=== PATIENT | male | born 1940 | race Caucasian/White ===

== ENCOUNTER 2018-05-09 08:41 | Inpatient (IN) | payer OTHER, MEDICARE ==
[2018-05-01 15:18] LABS: BASOPHILS # (AUTO) 0.1 K/uL (0.0-0.2); BASOPHILS % (AUTO) 0.7 % (0.0-2.0); EOSINOPHILS # (AUTO) 0.4 K/uL (0.0-0.4); EOSINOPHILS % (AUTO) 4.1 % (0.0-4.0); HEMATOCRIT 36.4 % (36-54); LYMPHOCYTES # (AUTO) 2.7 K/uL (1.0-5.5); LYMPHOCYTES % (AUTO) 25.9 % (20.5-51.5); MEAN CORPUSCULAR HEMOGLOBIN 30 pg (27-31); MEAN CORPUSCULAR HGB CONC 33 % (32-36); MEAN CORPUSCULAR VOLUME 90 fL (79.0-98.0); MONOCYTES # (AUTO) 0.9 K/uL (0.0-1.0); MONOCYTES % (AUTO) 8.3 % (1.7-9.3); NEUTROPHILS # (AUTO) 6.3 K/uL (1.8-7.7); PLATELET COUNT (AUTO) 271 K/uL (130-430); RED BLOOD CELL COUNT(AUTO) 4.04 MIL/uL (4.2-6.2); RED CELL DISTRIBUTION WIDTH 14.1 % (9.0-15.0); WHITE BLOOD COUNT (AUTO) 10.4 K/uL (4.8-10.8)
[2018-05-01 15:32] LABS: BILIRUBIN,URINE NEGATIVE (NEGATIVE); BLOOD, URINE 1+ (NEGATIVE); CLARITY/URINE CLEAR (CLEAR); COLOR,URINE YELLOW (YELLOW); GLUCOSE,URINE NEGATIVE (NEGATIVE); KETONES,URINE NEGATIVE (NEGATIVE); LEUKOCYTE ESTERASE ,URINE NEGATIVE (NEGATIVE); NITRITE, URINE NEGATIVE (NEGATIVE); PH,URINE 5.5 (5.0-8.0); PROTEIN URINE TRACE (NEGATIVE); UROBILINOGEN,URINE 0.2 (0.2-1.0)
[2018-05-01 15:48] LABS: ANION GAP 13 (5-15); CALCIUM 10.4 mg/dL (8.4-11.0); CHLORIDE 102 mmol/L (98-107); CREATININE 2.57 mg/dL (0.55-1.30); GLUCOSE 107 mg/dL (70-99); POTASSIUM 4.1 mmol/L (3.5-5.1); SODIUM SERUM 135 mmol/L (136-145); UREA NITROGEN, BLOOD 39 mg/dL (8-21)
[2018-05-01 16:20] LABS: BACTERIA,URINE FEW /HPF (None Seen); RBC,URINE 0-3 /HPF (0-3); WBC,URINE 0-3 /HPF (0-3)
[2018-05-01 16:21] LABS: COARSE GRANULAR CASTS,URINE 0-10 /LPF (None Seen); MUCUS,URINE 1+ /LPF (None Seen)
[~2018-05-09] VITALS: Ht 165.1 cm; Wt 98.0 kg
[2018-05-09] MEDS ORDERED: CEFAZOLIN SOD 2 GM in D5W 50 ML IV ONE (09:00)
[2018-05-09] MEDS ORDERED: VANCOMYCIN HCL 1,000 MG in NS 250 ML IV ONE (09:00)
[2018-05-09] MEDS ORDERED: TRANEXAMIC ACID 1,000 MG/10 ML VIAL IV ONE ×2 (09:00→14:20)
[2018-05-09] MEDS ORDERED: SODI325T PO (10:27)
[2018-05-09] MEDS ORDERED: LINA5TAB2 PO (10:27)
[2018-05-09] MEDS ORDERED: MIRA25TA PO (10:27)
[2018-05-09] MEDS ORDERED: PATI16.8 PO (10:27)
[2018-05-09] MEDS ORDERED: CARV6.2554 PO (10:27)
[2018-05-09] MEDS ORDERED: MOME13HF2 INH (10:27)
[2018-05-09] MEDS ORDERED: OMEG1CAP PO (10:27)
[2018-05-09] MEDS ORDERED: MONT10TA22 (10:27)
[2018-05-09] MEDS ORDERED: LIP40 PO (10:27)
[2018-05-09] MEDS ORDERED: POTA10TA15 PO (10:27)
[2018-05-09] MEDS ORDERED: ALBUTEROL SULFATE 0.083% 2.5 MG/3 ML VIAL.NEB INH ONE ×2 (11:10→11:30)
[2018-05-09] MEDS ORDERED: POLYMYXIN 500,000/BACIT.10,000 UNITS in NS IRR 1 L IR ONE (11:14)
[2018-05-09] MEDS: ROPIVACAINE 0.2% 550 ML INJ SCH (12:12)
[2018-05-09] MEDS ORDERED: MORPHINE SULFATE 10MG/10ML PF AMP SP SCH (12:15)
[2018-05-09] MEDS ORDERED: ONDANSETRON HCL 4 MG/2 ML VIAL IVP PRN ×3 (12:15→14:15)
[2018-05-09] MEDS ORDERED: fentaNYL CITRATE/PF 100 MCG/2 ML AMP IVP PRN ×2 (12:15)
[2018-05-09] MEDS ORDERED: DIPHENHYDRAMINE INJ 50 MG/ML VIAL IVP PRN ×2 (12:15)
[2018-05-09] MEDS ORDERED: NALOXONE HCL 0.4 MG/ML AMP (NARCAN) IVP PRN ×2 (12:15)
[2018-05-09] MEDS ORDERED: NALBUPHINE HCL 10 MG/ML AMP IVP PRN ×2 (12:15)
[2018-05-09] MEDS ORDERED: DIPHENHYDRAMINE HCL 25 MG CAPSULE PO PRN (14:15)
[2018-05-09] MEDS ORDERED: ROPIVACAINE HCL/PF 5 MG/ML 0.5% 30 ML VIAL ONE (14:20)
[2018-05-09] MEDS ORDERED: MIDAZOLAM HCL 5 MG/ML VIAL (VERSED) IV ONE (14:20)
[2018-05-09] MEDS ORDERED: BUPIVACAINE /PF 0.75% 10 ML VIAL INJ ONE (14:20)
[2018-05-09] MEDS ORDERED: LR 1,000 ML IV.SOLN IV ONE (14:20)
[2018-05-09] MEDS ORDERED: ROPIVACAINE 0.2% (NAROPIN) PF SOLUTION 100 ML BOTTLE ONE (14:20)
[2018-05-09] MEDS ORDERED: PROPOFOL 200MG/ 20ML VIAL (DIPRIVAN) IV ONE (14:20)
[2018-05-09] MEDS ORDERED: CEFAZOLIN 2 GM IVPB PREMIX 50 ML IV ONE (14:20)
[2018-05-09] MEDS: LR 1,000 ML IV SCH (15:48)
[2018-05-09 15:50] VITALS: BP_SYST 99
[2018-05-09 16:25] VITALS: BP_SYST 127
[2018-05-09] MEDS: OXYCODONE/ACETAMINOPHEN *10*mg/325 mg TABLET PO PRN (17:23)
[2018-05-09] MEDS ORDERED: COMMUNICATION ORDER XX ONE (17:45)
[2018-05-09] MEDS ORDERED: NON-FORMULARY MEDICATION (Mirabegron (Myrbetriq) 25 MG) PO SCH (17:45)
[2018-05-09] MEDS ORDERED: MEPERIDINE HCL/PF 50 MG/ML AMP IM ONE (19:15)
[2018-05-09 20:00] VITALS: BP_SYST 145
[2018-05-09] MEDS ORDERED: TRANEXAMIC ACID 1,000 MG in NS 50 ML IV ONE (20:30)
[2018-05-09] MEDS: SENNOSIDES 8.6 MG TABLET PO SCH (20:48)
[2018-05-09] MEDS ORDERED: NON-FORMULARY MEDICATION (Mometasone/Formoterol* (Dulera 100 Mcg/5 Mcg Inhaler*) 2 PUFF) INH SCH (21:00)
[2018-05-09] MEDS: TRIAMCINOLONE ACETONIDE 0.025% 80 GM CREAM.GM. TP SCH (21:00)
[2018-05-09] MEDS: SODIUM BICARBONATE 325 MG TABLET PO SCH (21:00)
[2018-05-09] MEDS: NYSTATIN CREAM TP SCH (21:00)
[2018-05-09] MEDS: CLOBETASOL PROPIONATE 0.05%, 60 GM CREAM TP SCH (21:00)
[2018-05-09] MEDS: VELTASSA 16.8 GM PO SCH (21:04)
[2018-05-10 00:07] VITALS: BP_SYST 136
[2018-05-10] MEDS: LR 1,000 ML IV SCH ×2 (04:12→15:03)
[2018-05-10] MEDS: OXYCODONE/ACETAMINOPHEN *10*mg/325 mg TABLET PO PRN ×2 (05:10→13:50)
[2018-05-10 06:22] LABS: BASOPHILS # (AUTO) 0.1 K/uL (0.0-0.2); BASOPHILS % (AUTO) 0.9 % (0.0-2.0); EOSINOPHILS # (AUTO) 0.3 K/uL (0.0-0.4); EOSINOPHILS % (AUTO) 2.4 % (0.0-4.0); HEMATOCRIT 32.3 % (36-54); HEMOGLOBIN 10.6 g/dL (14.0-18.0); LYMPHOCYTES # (AUTO) 1.7 K/uL (1.0-5.5); LYMPHOCYTES % (AUTO) 14.5 % (20.5-51.5); MEAN CORPUSCULAR HEMOGLOBIN 29 pg (27-31); MEAN CORPUSCULAR HGB CONC 33 % (32-36); MEAN CORPUSCULAR VOLUME 89 fL (79.0-98.0); MONOCYTES % (AUTO) 8.8 % (1.7-9.3); NEUTROPHILS # (AUTO) 8.6 K/uL (1.8-7.7); NEUTROPHILS % (AUTO) 73.4 % (40.0-70.0); PLATELET COUNT (AUTO) 239 K/uL (130-430); RED BLOOD CELL COUNT(AUTO) 3.64 MIL/uL (4.2-6.2); RED CELL DISTRIBUTION WIDTH 13.7 % (9.0-15.0); WHITE BLOOD COUNT (AUTO) 11.7 K/uL (4.8-10.8)
[2018-05-10 06:37] LABS: ANION GAP 9 (5-15); CALCIUM 9.6 mg/dL (8.4-11.0); CHLORIDE 98 mmol/L (98-107); CREATININE 2.49 mg/dL (0.55-1.30); GLUCOSE 192 mg/dL (70-99); POTASSIUM 4.1 mmol/L (3.5-5.1); SODIUM SERUM 131 mmol/L (136-145); UREA NITROGEN, BLOOD 39 mg/dL (8-21)
[2018-05-10 08:00] VITALS: BP_SYST 129
[2018-05-10] MEDS: NYSTATIN CREAM TP SCH ×2 (08:35→21:00)
[2018-05-10] MEDS: FLUTICASONE/VILANTEROL 1 EACH BLST.W.DEV INH SCH ×2 (08:36→21:33)
[2018-05-10] MEDS: MULTIVITAMINS TAB 1 TABLET PO SCH (08:37)
[2018-05-10] MEDS: VELTASSA 16.8 GM PO SCH ×2 (08:37→21:20)
[2018-05-10] MEDS: ATORVASTATIN 20 MG TABLET PO SCH (08:37)
[2018-05-10] MEDS: ASCORBIC ACID 500 MG TABLET PO SCH ×2 (08:38→21:18)
[2018-05-10] MEDS: CARVEDILOL 6.25 MG TABLET (COREG) PO SCH (08:38)
[2018-05-10] MEDS: SODIUM BICARBONATE 325 MG TABLET PO SCH ×3 (08:38→21:19)
[2018-05-10] MEDS: FERROUS SULFATE 140 MG TABLET.ER PO SCH (08:39)
[2018-05-10] MEDS: CLOBETASOL PROPIONATE 0.05%, 60 GM CREAM TP SCH ×2 (08:46→21:32)
[2018-05-10] MEDS: TRIAMCINOLONE ACETONIDE 0.025% 80 GM CREAM.GM. TP SCH ×2 (08:46→21:00)
[2018-05-10] MEDS ORDERED: FLUTICASONE/VILANTEROL 1 EACH BLST.W.DEV INH PRN (09:00)
[2018-05-10] MEDS ORDERED: VELTASSA 16.8 GM PO SCH (09:00)
[2018-05-10] MEDS ORDERED: FLUTICASONE/VILANTEROL 1 EACH BLST.W.DEV INH SCH (09:00)
[2018-05-10] MEDS: RIVAROXABAN 10 MG TABLET PO SCH (10:01)
[2018-05-10 12:50] VITALS: BP_SYST 140
[2018-05-10] MEDS: ROPIVACAINE 0.2% 550 ML INJ SCH (16:22)
[2018-05-10 16:41] VITALS: BP_SYST 134
[2018-05-10 20:00] VITALS: BP_SYST 130
[2018-05-10] MEDS: SENNOSIDES 8.6 MG TABLET PO SCH (21:18)
[2018-05-11 00:07] VITALS: BP_SYST 131
[2018-05-11] MEDS: OXYCODONE/ACETAMINOPHEN *10*mg/325 mg TABLET PO PRN ×5 (00:48→21:19)
[2018-05-11 06:47] LABS: ANION GAP 12 (5-15); CALCIUM 10.6 mg/dL (8.4-11.0); CHLORIDE 94 mmol/L (98-107); CREATININE 2.77 mg/dL (0.55-1.30); GLUCOSE 153 mg/dL (70-99); POTASSIUM 3.7 mmol/L (3.5-5.1); SODIUM SERUM 126 mmol/L (136-145); UREA NITROGEN, BLOOD 34 mg/dL (8-21)
[2018-05-11 07:34] LABS: BASOPHILS # (AUTO) 0.1 K/uL (0.0-0.2); BASOPHILS % (AUTO) 0.9 % (0.0-2.0); EOSINOPHILS # (AUTO) 0.2 K/uL (0.0-0.4); EOSINOPHILS % (AUTO) 1.7 % (0.0-4.0); HEMATOCRIT 32.6 % (36-54); HEMOGLOBIN 11.2 g/dL (14.0-18.0); LYMPHOCYTES # (AUTO) 2.5 K/uL (1.0-5.5); LYMPHOCYTES % (AUTO) 19.1 % (20.5-51.5); MEAN CORPUSCULAR HEMOGLOBIN 30 pg (27-31); MEAN CORPUSCULAR HGB CONC 34 % (32-36); MEAN CORPUSCULAR VOLUME 88 fL (79.0-98.0); MONOCYTES # (AUTO) 1.2 K/uL (0.0-1.0); MONOCYTES % (AUTO) 8.7 % (1.7-9.3); NEUTROPHILS # (AUTO) 9.3 K/uL (1.8-7.7); NEUTROPHILS % (AUTO) 69.6 % (40.0-70.0); PLATELET COUNT (AUTO) 229 K/uL (130-430); RED BLOOD CELL COUNT(AUTO) 3.71 MIL/uL (4.2-6.2); RED CELL DISTRIBUTION WIDTH 13.8 % (9.0-15.0); WHITE BLOOD COUNT (AUTO) 13.3 K/uL (4.8-10.8)
[2018-05-11 08:00] VITALS: BP_SYST 123
[2018-05-11] MEDS: LR 1,000 ML IV SCH ×2 (08:52→16:03)
[2018-05-11] MEDS: ASCORBIC ACID 500 MG TABLET PO SCH ×2 (08:53→21:25)
[2018-05-11] MEDS: CARVEDILOL 6.25 MG TABLET (COREG) PO SCH (08:53)
[2018-05-11] MEDS: MULTIVITAMINS TAB 1 TABLET PO SCH (08:53)
[2018-05-11] MEDS: ATORVASTATIN 20 MG TABLET PO SCH (08:53)
[2018-05-11] MEDS: FERROUS SULFATE 140 MG TABLET.ER PO SCH (08:54)
[2018-05-11] MEDS: SODIUM BICARBONATE 325 MG TABLET PO SCH ×3 (08:54→21:26)
[2018-05-11] MEDS: FLUTICASONE/VILANTEROL 1 EACH BLST.W.DEV INH SCH ×2 (08:55→21:30)
[2018-05-11] MEDS: NYSTATIN CREAM TP SCH ×2 (08:59→21:00)
[2018-05-11] MEDS: VELTASSA 16.8 GM PO SCH ×2 (08:59→21:29)
[2018-05-11] MEDS: CLOBETASOL PROPIONATE 0.05%, 60 GM CREAM TP SCH ×2 (09:00→21:31)
[2018-05-11] MEDS: TRIAMCINOLONE ACETONIDE 0.025% 80 GM CREAM.GM. TP SCH ×2 (09:00→21:00)
[2018-05-11] MEDS: RIVAROXABAN 10 MG TABLET PO SCH (10:29)
[2018-05-11 12:10] VITALS: BP_SYST 146
[2018-05-11] MEDS: ROPIVACAINE 0.2% 550 ML INJ SCH (12:12)
[2018-05-11 16:15] VITALS: BP_SYST 165
[2018-05-11 20:18] VITALS: BP_SYST 127
[2018-05-11] MEDS: SENNOSIDES 8.6 MG TABLET PO SCH (21:25)
[2018-05-12] MEDS: OXYCODONE/ACETAMINOPHEN *10*mg/325 mg TABLET PO PRN ×3 (01:06→11:13)
[2018-05-12 02:16] VITALS: BP_SYST 108
[2018-05-12] MEDS: LR 1,000 ML IV SCH ×2 (04:33→17:03)
[2018-05-12 06:31] LABS: BASOPHILS # (AUTO) 0.1 K/uL (0.0-0.2); BASOPHILS % (AUTO) 0.4 % (0.0-2.0); EOSINOPHILS # (AUTO) 0.3 K/uL (0.0-0.4); EOSINOPHILS % (AUTO) 2.6 % (0.0-4.0); HEMATOCRIT 32.2 % (36-54); HEMOGLOBIN 10.8 g/dL (14.0-18.0); LYMPHOCYTES # (AUTO) 2.8 K/uL (1.0-5.5); LYMPHOCYTES % (AUTO) 21.8 % (20.5-51.5); MEAN CORPUSCULAR HEMOGLOBIN 30 pg (27-31); MEAN CORPUSCULAR HGB CONC 34 % (32-36); MEAN CORPUSCULAR VOLUME 90 fL (79.0-98.0); MONOCYTES % (AUTO) 7.5 % (1.7-9.3); NEUTROPHILS # (AUTO) 8.5 K/uL (1.8-7.7); NEUTROPHILS % (AUTO) 67.7 % (40.0-70.0); PLATELET COUNT (AUTO) 256 K/uL (130-430); RED BLOOD CELL COUNT(AUTO) 3.59 MIL/uL (4.2-6.2); RED CELL DISTRIBUTION WIDTH 13.6 % (9.0-15.0); WHITE BLOOD COUNT (AUTO) 12.7 K/uL (4.8-10.8)
[2018-05-12 07:00] LABS: ANION GAP 10 (5-15); CALCIUM 10.6 mg/dL (8.4-11.0); CHLORIDE 95 mmol/L (98-107); CREATININE 3.33 mg/dL (0.55-1.30); GLUCOSE 156 mg/dL (70-99); POTASSIUM 3.8 mmol/L (3.5-5.1); SODIUM SERUM 129 mmol/L (136-145); UREA NITROGEN, BLOOD 41 mg/dL (8-21)
[2018-05-12 07:19] LABS: ALANINE AMINOTRANSFERASE 22 U/L (12-78); ALBUMIN 2.6 g/dL (3.4-4.8); ASPARTATE AMINOTRANSFERASE 17 U/L (10-37); PHOSPHORUS 5.2 mg/dL (2.7-4.5); TOTAL BILIRUBIN 0.5 mg/dL (0.0-1.0)
[2018-05-12 08:30] VITALS: BP_SYST 124
[2018-05-12] MEDS: MULTIVITAMINS TAB 1 TABLET PO SCH (08:35)
[2018-05-12] MEDS: ATORVASTATIN 20 MG TABLET PO SCH (08:35)
[2018-05-12] MEDS: ASCORBIC ACID 500 MG TABLET PO SCH ×2 (08:35→21:01)
[2018-05-12] MEDS: FERROUS SULFATE 140 MG TABLET.ER PO SCH (08:36)
[2018-05-12] MEDS: FLUTICASONE/VILANTEROL 1 EACH BLST.W.DEV INH SCH ×2 (08:36→18:46)
[2018-05-12] MEDS: SODIUM BICARBONATE 325 MG TABLET PO SCH ×3 (08:37→21:02)
[2018-05-12] MEDS: CARVEDILOL 6.25 MG TABLET (COREG) PO SCH (08:38)
[2018-05-12] MEDS: TRIAMCINOLONE ACETONIDE 0.025% 80 GM CREAM.GM. TP SCH ×2 (08:40→21:15)
[2018-05-12] MEDS: NYSTATIN CREAM TP SCH ×2 (08:41→21:13)
[2018-05-12] MEDS: CLOBETASOL PROPIONATE 0.05%, 60 GM CREAM TP SCH ×2 (08:43→21:15)
[2018-05-12] MEDS: VELTASSA 16.8 GM PO SCH ×2 (09:00→21:00)
[2018-05-12 09:45] VITALS: BP_SYST 122
[2018-05-12] MEDS: RIVAROXABAN 10 MG TABLET PO SCH (11:14)
[2018-05-12 12:18] VITALS: BP_SYST 128
[2018-05-12] MEDS ORDERED: POLYETHYLENE GLYCOL 3350, 17 GM/ POWD.PACK PO ONE (17:00)
[2018-05-12 17:01] VITALS: BP_SYST 119
[2018-05-12 20:00] VITALS: BP_SYST 133
[2018-05-12] MEDS: SENNOSIDES 8.6 MG TABLET PO SCH (21:01)
[2018-05-13 02:44] VITALS: BP_SYST 129
[2018-05-13 05:19] LABS: ANION GAP 15 (5-15); CALCIUM 10.2 mg/dL (8.4-11.0); CHLORIDE 96 mmol/L (98-107); CREATININE 3.07 mg/dL (0.55-1.30); GLUCOSE 146 mg/dL (70-99); POTASSIUM 3.2 mmol/L (3.5-5.1); SODIUM SERUM 131 mmol/L (136-145); UREA NITROGEN, BLOOD 45 mg/dL (8-21)
[2018-05-13 08:00] VITALS: BP_SYST 118
[2018-05-13] MEDS ORDERED: INSULIN ASPART 100 UNITS/ML, 10 ML VIAL (NovoLOG) SUBCUT PRN (08:45)
[2018-05-13] MEDS: VELTASSA 16.8 GM PO SCH (09:00)
[2018-05-13] MEDS ORDERED: POTASSIUM CHLORIDE 8 MEQ TABLET.SA PO ONE (09:00)
[2018-05-13] MEDS: ASCORBIC ACID 500 MG TABLET PO SCH (09:36)
[2018-05-13] MEDS: ATORVASTATIN 20 MG TABLET PO SCH (09:36)
[2018-05-13] MEDS: CARVEDILOL 6.25 MG TABLET (COREG) PO SCH (09:37)
[2018-05-13] MEDS: MULTIVITAMINS TAB 1 TABLET PO SCH (09:38)
[2018-05-13] MEDS: FLUTICASONE/VILANTEROL 1 EACH BLST.W.DEV INH SCH (09:39)
[2018-05-13] MEDS: NYSTATIN CREAM TP SCH (09:42)
[2018-05-13] MEDS: CLOBETASOL PROPIONATE 0.05%, 60 GM CREAM TP SCH (09:44)
[2018-05-13] MEDS: TRIAMCINOLONE ACETONIDE 0.025% 80 GM CREAM.GM. TP SCH (09:44)
[2018-05-13] MEDS: FERROUS SULFATE 140 MG TABLET.ER PO SCH (09:45)
[2018-05-13] MEDS: SODIUM BICARBONATE 325 MG TABLET PO SCH ×2 (09:47→15:46)
[2018-05-13] MEDS: RIVAROXABAN 10 MG TABLET PO SCH (10:13)
[2018-05-13] MEDS ORDERED: HYDROcodone/ACETAMIN 10-325 MG TAB PO PRN (10:30)
[2018-05-13] MEDS: HYDROcodone/ACETAMIN 7.5-325 MG TAB PO PRN ×2 (11:36→15:45)
[2018-05-13] MEDS ORDERED: guaiFENesin/DEXTROMETHORPHAN 10 ML UDC PO PRN (11:45)
[2018-05-13 13:46] VITALS: BP_SYST 123
[2018-05-13 14:43] VITALS: BP_SYST 103
[2018-05-13] MEDS ORDERED: HYDR-551 PO (15:21)
[2018-05-13] MEDS ORDERED: RIVA10TA PO (15:22)
[2018-05-13] MEDS ORDERED: HYDR-2489 PO (15:25)
[2018-05-13 16:00] VITALS: BP_SYST 103
== END 2018-05-13 16:57 | DRG 469 ==
LOC: SMU 08:41
PROVIDERS: ADMIT Orthopaedic Surgery; ATTEND Orthopaedic Surgery
PROC: 0SRD0J9 Replacement of Left Knee Joint with Synthetic Substitute, Cemented, Open Approach (ICD-10-PCS; principal; 2018-05-09 11:30)
DX: M17.0 Bilateral primary osteoarthritis of knee (principal); N17.0 Acute kidney failure with tubular necrosis; N18.4 Chronic kidney disease, stage 4 (severe); E87.2 Acidosis; E87.1 Hypo-osmolality and hyponatremia; E11.22 Type 2 diabetes mellitus with diabetic chronic kidney disease; E78.5 Hyperlipidemia, unspecified; E66.9 Obesity, unspecified; E78.00 Pure hypercholesterolemia, unspecified; M89.29 Other disorders of bone development and growth, multiple sites; M54.5 Low back pain; E87.5 Hyperkalemia; E87.6 Hypokalemia; I12.9 Hypertensive chronic kidney disease with stage 1 through stage 4 chronic kidney disease, or unspecified chronic kidney disease; J44.9 Chronic obstructive pulmonary disease, unspecified; Z85.46 Personal history of malignant neoplasm of prostate; Z87.442 Personal history of urinary calculi; Z87.891 Personal history of nicotine dependence; Z79.899 Other long term (current) drug therapy; Z82.61 Family history of arthritis; Z80.42 Family history of malignant neoplasm of prostate; Z80.8 Family history of malignant neoplasm of other organs or systems; Z88.1 Allergy status to other antibiotic agents; Z68.35 Body mass index [BMI] 35.0-35.9, adult
CPT/HCPCS: 36415; 71046-TC; 73560-TC; 80048; 80053; 81000-TC; 82962; 84100-TC; 84302-TC; 85025; 86886; 86900; 86901; 86920; 87081; 88305; 88311; 94010; 94640; 94660; 94760; 97110-GP; 97116-GP; 97530-GP; C1713; C1776; J0690; J2175; J2250; J2274; J2704; J2795; J3370; J3490; J7050; J7060; J7120; J7613

== ENCOUNTER 2018-07-07 09:08 | Outpatient (CLI) | payer OTHER, MEDICARE ==
[~2018-07-07 09:08] MED LIST: CARV6.2554 PO; HYDR-2489 PO; HYDR-551 PO; LINA5TAB2 PO; LIP40 PO; MIRA25TA PO; MOME13HF2 INH; MONT10TA22; OMEG1CAP PO; PATI16.8 PO; POTA10TA15 PO; RIVA10TA PO; SODI325T PO
== END 2018-07-07 19:42 | disposition home or self-care (01) ==
LOC: SUS 09:08
PROVIDERS: ATTEND Orthopaedic Surgery
DX: R60.0 Localized edema (principal)
CPT/HCPCS: 93971